=== PATIENT | male | born 1960 | race African-American/Black ===

== ENCOUNTER → 2017-02-09 | Outpatient (CLI) | payer MEDICARE, MEDICAID, OTHER ==
[2017-02-09 14:32] LABS: HEMATOCRIT 46.1 % (37.9-51.0); HEMOGLOBIN 14.7 g/dL (13.5-17.0); MEAN CORPUSCULAR HEMOGLOBIN 30.7 pg (27.0-33.4); MEAN CORPUSCULAR HGB CONC 31.9 g/dL (32.0-36.0); MEAN CORPUSCULAR VOLUME 96 fl (80-97); RED CELL DISTRIBUTION WIDTH 15.1 % (11.5-14.0); WHITE BLOOD COUNT 5.1 10^3/uL (4.0-10.5)
[2017-02-09 14:35] LABS: ALANINE AMINOTRANSFERASE 28 U/L (21-72); ALBUMIN 3.3 g/dL (3.5-5.0); ALKALINE PHOSPHATASE 110 U/L (38-126); ASPARTATE AMINO TRANSFERASE 33 U/L (17-59); BILIRUBIN,DIRECT 0.3 mg/dL (0.0-0.4); BILIRUBIN,TOTAL 0.4 mg/dL (0.2-1.3); TOTAL PROTEIN 6.4 g/dL (6.3-8.2)
[2017-02-09 14:51] LABS: BAND NEUTROPHILS % (MANUAL) 2 % (3-5); BASOPHILS % (MANUAL) 0 % (0-2); EOSINOPHILS % (MANUAL) 5 % (0-6); LYMPHOCYTES % (MANUAL) 34 % (13-45); NUCLEATED RED BLOOD CELLS 1 /100 WBC (0); TOTAL CELLS COUNTED 100
[2017-02-09 14:53] LABS: ANISOCYTOSIS SLIGHT; PLATELET CLUMPS PRESENT
== END ==
LOC: PNR 11:56
PROVIDERS: ATTEND Internal Medicine
DX: E78.00 Pure hypercholesterolemia, unspecified (principal); I38 Endocarditis, valve unspecified; K21.0 Gastro-esophageal reflux disease with esophagitis; G40.909 Epilepsy, unspecified, not intractable, without status epilepticus; I42.1 Obstructive hypertrophic cardiomyopathy; I48.1 Persistent atrial fibrillation; G93.41 Metabolic encephalopathy
CPT/HCPCS: 80076; 85025

== ENCOUNTER 2017-04-10 17:03 | Inpatient (IN) | payer MEDICARE, MEDICAID ==
--- NOTE | 2017-04-10 18:35 | RADIOLOGY REPORT (SQ) ---
EXAM DESCRIPTION: CHEST SINGLE VIEW COMPLETED DATE/TIME: 04/10/2017 6:27 pm REASON FOR STUDY: hypotension COMPARISON: 05/24/2015 EXAM PARAMETERS: NUMBER OF VIEWS: One view. TECHNIQUE: Single frontal radiographic view of the chest acquired. RADIATION DOSE: NA LIMITATIONS: None. FINDINGS: LUNGS AND PLEURA: No opacities, masses or pneumothorax. No pleural effusion. MEDIASTINUM AND HILAR STRUCTURES: No masses. Contour normal. HEART AND VASCULAR STRUCTURES: Heart normal in size. Normal vasculature. BONES: Scoliosis. HARDWARE: None in the chest. OTHER: No other significant finding. IMPRESSION: NO ACUTE RADIOGRAPHIC FINDING IN THE CHEST. TECHNICAL DOCUMENTATION: JOB ID: [id number]
[2017-04-10 18:44] LABS: HEMATOCRIT 42.9 % (37.9-51.0); HGB HCT DIFFERENCE -0.9; MEAN CORPUSCULAR HEMOGLOBIN 31.8 pg (27.0-33.4); MEAN CORPUSCULAR HGB CONC 32.7 g/dL (32.0-36.0); MEAN CORPUSCULAR VOLUME 97 fl (80-97); RED BLOOD COUNT 4.41 10^6/uL (4.35-5.55); RED CELL DISTRIBUTION WIDTH 14.4 % (11.5-14.0); WHITE BLOOD COUNT 16.1 10^3/uL (4.0-10.5)
--- NOTE | 2017-04-10 18:47 | ER Document Report ---
ED General - General Mode of Arrival: Ambulatory Information source: Relative Cannot obtain history due to: Mentally challenged TRAVEL OUTSIDE OF THE [place] IN LAST 30 DAYS: No <BHARAT KAMARA - Last Filed: 04/10/17 21:06> <BRITT MARK - Last Filed: 04/10/17 22:22> - General Chief Complaint: Other Stated Complaint: ALTERED MENTAL STATUS Time Seen by Provider: 04/10/17 17:38 Notes: Patient is a 56-year-old male that presents to the emergency department today with complaints of "being not responsive" according to family members at bedside. Family member states they received a call from the patient's shelter saying that he was found on the floor. 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 History is limited. (BHARAT KAMARA) - Related Data Allergies/Adverse Reactions: clindamycin [Clindamycin] Allergy (Unknown, Verified 04/10/17 17:54) Past Medical History - General Information source: [facility] Records Cannot obtain history due to: Mentally challenged - Social History Smoking Status: Never Smoker Cigarette use (# per day): No Frequency of alcohol use: None Drug Abuse: None Lives with: Correction Family History: Reviewed & Not Pertinent, DM - Past Medical History Cardiac Medical History: Reports: Hx Hypercholesterolemia, Hx Hypertension - Hypertrophic obstructive cardiomyopathy, Hx Heart Murmur Pulmonary Medical History: Reports: Hx Pneumonia Neurological Medical History: Reports: Hx Seizures Endocrine Medical History: Reports: Hx Diabetes Mellitus Type 1, Hx Diabetes Mellitus Type 2 Surgical Hx: Negative - Immunizations Immunizations up to date: Yes Hx Diphtheria, Pertussis, Tetanus Vaccination: Yes Hx Pneumococcal Vaccination: 07/30/12 <BHARAT KAMARA - Last Filed: 04/10/17 21:06> Review of Systems - Review of Systems -: Yes ROS unobtainable due to patient's medical condition <BHARAT KAMARA - Last Filed: 04/10/17 21:06> Physical Exam - Vital signs Interpretation: Hypotensive - General General appearance: Lethargic In distress: None - HEENT Mucous membranes: Dry - Respiratory Respiratory status: No respiratory distress Chest status: Nontender Breath sounds: Normal - Cardiovascular Rhythm: Regular - Abdominal Inspection: Normal Tenderness: Nontender - Back Back: Normal - Extremities General upper extremity: Other - at baseline General lower extremity: Other - at baseline - Neurological Cognition: Other - less responsive than usual - Skin Skin Temperature: Warm Skin Moisture: Dry <BRITT MARK - Last Filed: 04/10/17 22:22> - Vital signs Vitals: Temp Pulse Resp BP Pulse Ox 99.6 F 82 17 98/61 L 95 04/10/17 17:10 04/10/17 17:10 04/10/17 17:10 04/10/17 17:10 04/10/17 17:10 Course - Laboratory Result Diagrams: 04/10/17 18:20 04/10/17 18:20 <BHARAT KAMARA - Last Filed: 04/10/17 21:06> - Laboratory Result Diagrams: 04/10/17 18:20 04/10/17 18:20 - Diagnostic Test Radiology reviewed: Reports reviewed <BRITT MARK - Last Filed: 04/10/17 22:22> - Re-evaluation Re-evalutation: 04/10/17 Patient is a 56-year-old male who is brought in for being more tired than usual. Patient has a history of MRCP and is not very communicative at baseline. Patient has been less interactive today. Patient does not seem to indicate that he is in pain. Patient apparently had a large bowel movement today that was loose. Blood work is consistent with infection, as is the patient's elevation in temperature and hypotension. Patient has UTI. Cefepime started. Blood and urine culture sent. Discussed with Dr. Terrell who will admit the patient to the IMCU. Of note, patient is DNR/DNI. (BRITT MARK) - Vital Signs Vital signs: Temp Pulse Resp BP Pulse Ox 99.6 F 108 H 16 113/70 92 04/10/17 17:10 04/10/17 21:35 04/10/17 21:35 04/10/17 21:35 04/10/17 21:35 - Laboratory Laboratory results interpreted by me: 04/10/17 04/10/17 04/10/17 18:18 18:20 18:20 WBC 16.1 H RDW 14.4 H Seg Neuts % (Manual) 81 H Band Neutrophils % 10 H Lymphocytes % (Manual) 7 L Monocytes % (Manual) 1 L Abs Neuts (Manual) 14.7 H BUN 27 H Creatinine 1.42 H Est GFR (Non-Af Amer) 52 L Glucose 238 H POC Glucose 210 H Alkaline Phosphatase 129 H Urine Protein Urine Ketones Ur Leukocyte Esterase 04/10/17 20:30 WBC RDW Seg Neuts % (Manual) Band Neutrophils % Lymphocytes % (Manual) Monocytes % (Manual) Abs Neuts (Manual) BUN Creatinine Est GFR (Non-Af Amer) Glucose POC Glucose Alkaline Phosphatase Urine Protein 30 H Urine Ketones 20 H Ur Leukocyte Esterase MODERATE H Discharge <BHARAT KAMARA - Last Filed: 04/10/17 21:06> - Discharge Admitting Provider: [facility] Unit Admitted: IMCU <BRITT MARK - Last Filed: 04/10/17 22:22> - Discharge Clinical Impression: Septicemia UTI (urinary tract infection) Qualifiers: Urinary tract infection type: site unspecified Hematuria presence: without hematuria Qualified Code(s): N39.0 - Urinary tract infection, site not specified Condition: Stable Disposition: ADMITTED INPATIENT Scribe Attestation: 04/10/17 22:22 I personally performed the services described in the documentation, reviewed and edited the documentation which was dictated to the scribe in my presence, and it accurately records my words and actions. (BRITT MARK) Scribe Documentation - Scribe Written by Scribe:: Maris Castaneda, 04/10/2017 2110 acting as scribe for :: Lulu <BHARAT KAMARA - Last Filed: 04/10/17 21:06>
[2017-04-10 18:50] LABS: PROTHROMBIN TIME 13.6 SEC (11.4-15.4)
[2017-04-10 19:03] LABS: ALANINE AMINOTRANSFERASE 40 U/L (21-72); ALBUMIN 3.7 g/dL (3.5-5.0); ALKALINE PHOSPHATASE 129 U/L (38-126); ANION GAP 10 (5-19); ASPARTATE AMINO TRANSFERASE 38 U/L (17-59); BILIRUBIN,DIRECT 0.4 mg/dL (0.0-0.4); BILIRUBIN,TOTAL 0.5 mg/dL (0.2-1.3); BLOOD UREA NITROGEN 27 mg/dL (7-20); CARBON DIOXIDE 26 mmol/L (22-30); CHLORIDE 106 mmol/L (98-107); CREATININE RESULT 1.42 mg/dL (0.52-1.25); GLUCOSE 238 mg/dL (75-110); POTASSIUM 4.8 mmol/L (3.6-5.0); SODIUM 141.9 mmol/L (137-145); TOTAL PROTEIN 6.6 g/dL (6.3-8.2)
[2017-04-10 19:09] LABS: BAND NEUTROPHILS % (MANUAL) 10 % (3-5); BASOPHILS % (MANUAL) 0 % (0-2); EOSINOPHILS % (MANUAL) 0 % (0-6); LYMPHOCYTES % (MANUAL) 7 % (13-45); TOTAL CELLS COUNTED 100
[2017-04-10 19:11] LABS: RBC MORPHOLOGY COMMENT NORMO-CYTIC/CHROMIC
[2017-04-10 19:16] LABS: VENOUS BLOOD BASE EXCESS 0.4 mmol/L; VENOUS BLOOD HCO3 26.7 mmol/L (20-32); VENOUS BLOOD PCO2 49.6 mmHg (35-63); VENOUS BLOOD PH 7.35 (7.30-7.42)
[2017-04-10] MEDS ORDERED: NORMAL SALINE 1000 ML 1,000 ML IV ONE (19:36)
--- NOTE | 2017-04-10 20:03 | EKG REPORT ---
SEVERITY:- ABNORMAL ECG - SINUS RHYTHM PROBABLE LVH WITH SECONDARY REPOL ABNRM BORDERLINE PROLONGED QT INTERVAL : Confirmed by: Yolanda Lee 10-Apr-2017 20:02:54
[2017-04-10] MEDS ORDERED: CEFEPIME 1 GM/D5W RTU 1 GM/50 ML RTUPB IV ONE (20:43)
[2017-04-10 21:02] LABS: APPEARANCE,URINE SLIGHTLY-CLOUDY; BILIRUBIN,URINE NEGATIVE (NEGATIVE); GLUCOSE, URINE NEGATIVE (NEGATIVE); KETONES,URINE 20 mg/dL (NEGATIVE); LEUKOCYTE ESTERASE,URINE MODERATE (NEGATIVE); NITRITE,URINE NEGATIVE (NEGATIVE); PROTEIN,URINE 30 mg/dL (NEGATIVE); URINE SPECIFIC GRAVITY 1.016; UROBILINOGEN,URINE NEGATIVE mg/dL (<2.0)
[2017-04-11] MEDS ORDERED: ACETAMINOPHEN 325 MG TABLET PO PRN (07:39)
[2017-04-11] MEDS ORDERED: (PENDING PHARMACY ID) (Ondansetron Hcl [Zofran] 4 MG) PO PRN (07:39)
[2017-04-11] MEDS ORDERED: GLUCAGON HCL 1 MG IM PRN (07:39)
[2017-04-11] MEDS ORDERED: (PENDING PHARMACY ID) (Omeprazole [Prilosec] 20 MG) PO SCH (07:45)
[2017-04-11] MEDS ORDERED: LEVETIRACETAM 2000 MG PO SCH (07:45)
[2017-04-11] MEDS ORDERED: GLUCAGON,HUMAN RECOMB 1 MG INJ SUBCUT PRN (07:48)
[2017-04-11] MEDS ORDERED: ONDANSETRON 4 MG TAB.RAPDIS PO PRN (07:51)
[2017-04-11] MEDS ORDERED: CARBAMAZEPINE 200 MG TAB.SR.12H PO SCH (08:00)
[2017-04-11 08:34] LABS: PROTHROMBIN TIME 13.5 SEC (11.4-15.4)
[2017-04-11 08:35] LABS: PARTIAL THROMBOPLASTIN TIME 28.8 SEC (23.5-35.8)
[2017-04-11 08:46] LABS: LIPASE 76.2 U/L (23-300); MAGNESIUM 1.9 mg/dL (1.6-2.3); PHOSPHORUS 3.1 mg/dL (2.5-4.5)
[2017-04-11] MEDS ORDERED: DEXTROSE 50%-WATER SYRINGE 12.5 GM/25 ML DOSE IV PRN (08:52)
[2017-04-11] MEDS ORDERED: GLUCAGON,HUMAN RECOMB 1 MG INJ IM PRN (08:52)
[2017-04-11] MEDS ORDERED: DEXTROSE 40% GEL 15 GM TUBE X 2 PO PRN (08:52)
[2017-04-11] MEDS ORDERED: DEXTROSE 40% GEL 15 GM TUBE PO PRN (08:52)
[2017-04-11] MEDS ORDERED: DEXTROSE 50%-WATER SYRINGE 25 GM/50 ML DOSE IV PRN (08:52)
[2017-04-11 08:56] LABS: URINE BARBITURATES SCREEN NEGATIVE; URINE METHADONE SCREEN NEGATIVE; URINE OPIATES LOW NEGATIVE; URINE PHENCYCLIDINE SCREEN NEGATIVE
[2017-04-11 08:58] LABS: CREATINE KINASE MB 10.1 ng/mL (<4.55)
[2017-04-11] MEDS ORDERED: ATORVASTATIN CALCIUM 80 MG TABLET PO ONE (09:00)
[2017-04-11 09:09] LABS: TROPONIN I 0.131 ng/mL
[2017-04-11 09:16] LABS: THYROID STIMULATING HORMONE 0.63 uIU/mL (0.47-4.68)
[2017-04-11] MEDS: NORMAL SALINE 1000 ML 1,000 ML IV PRN (09:55)
[2017-04-11] MEDS: ENOXAPARIN SODIUM INJ 40 MG/0.4 ML DISP.SYRIN SUBCUT SCH (10:53)
[2017-04-11] MEDS: INSULIN DETEMIR 100 UNIT/ML 3 ML PEN SUBCUT SCH ×2 (10:53→18:49)
[2017-04-11] MEDS: ASPIRIN 81 MG TABLET, CHEWABLE PO SCH (10:54)
[2017-04-11] MEDS: CEFTRIAXONE 1 GM/D5W RTU 1 GM/50 ML RTUPB IV SCH (10:54)
[2017-04-11] MEDS: LANSOPRAZOLE 15 MG TAB.RAP.DR PO SCH (10:55)
[2017-04-11] MEDS: LEVETIRACETAM 500 MG TABLET PO SCH ×2 (10:55→23:01)
[2017-04-11] MEDS: LOSARTAN POTASSIUM 50 MG TABLET PO SCH (10:56)
[2017-04-11] MEDS: METOPROLOL TARTRATE 50 MG TABLET PO SCH ×2 (10:56→23:02)
[2017-04-11] MEDS: INSULIN LISPRO 100 UNIT/ML 3 ML VIAL SUBCUT PRN (11:34)
[2017-04-11 13:48] LABS: CREATINE KINASE MB 8.3 ng/mL (<4.55); TROPONIN I 0.114 ng/mL
--- NOTE | 2017-04-11 14:11 | Physician Advisory Note ---
Physician Advisor ProgressNote .: [facility] I have reviewed the medical record for this patient. Physician Advisor Statement: Please consider documentin. "Acute Renal Failure, likely due to " [ATN? hypotension? volume depletion? sepsis? ...] (or "Acute Kidney Injury", if you prefer) - baseline Cr 1.0s, up to 1.42 on arrival. 2. Likely cause of elevated trop-I: ARF? ACS? sepsis? 3. ? - "Possible sepsis, present on admission, due to UTI, evidenced by leukocytosis, fever, tachycardia, hypotension, altered mental status with lethargy, ARF, ..." - IF you believe this may have been present. If clinically you doubt it, then state that: "possible sepsis, felt to be unlikely/ruled out ", for example. Pertinent data: Sepsis-2 criteria: Pt w/WBC 16.1, HR 108, initial BP 98/61 (usually hypertensive), w/RR16-22. Sepsis-3 criteria: Would benefit from attending clarifying points below as to whether caused by other issues or possibly due to sepsis: Pt w/ARF, which could potentially be due to sepsis/hypotension. GCS not calculated by ED nurse, but spont eye opening, pt not able to give any hx or ROS at all, & no indication pt obeyed commands makes it possible that his GCS total would have been 13 or lower. Thanks! CK
[2017-04-11] MEDS: CARBAMAZEPINE 200 MG TAB.SR.12H PO SCH ×2 (14:49→23:01)
--- NOTE | 2017-04-11 17:27 | PDOC H&P ---
History of Present Illness Admission Date/PCP: 04/11/17 07:35 History of Present Illness: DEVI CARVAJAL is a 56 year old male, He has a history of cardiomyopathy, subaortic valvular stenosis ,Down syndrome with mental retardation he was transferred from the intermediate to the emergency room for evaluation of altered mental status. History taking is a challenge from this patient, he has a history of type 1 diabetes mellitus, in the emergency room was evaluated he was found to have abnormal urinalysis, the urine dipstick showed positive leukocyte esterase pyuria on microscopy ,positive nitrite this suggest urinary tract infection. He has a history of mitral valve endocarditis he was treated for a period of 6 weeks at a time, he is a resident of the intermediate at [facility] Past Medical History Cardiac Medical History: Reports: Hyperlipidema, Hypertension - Hypertrophic obstructive cardiomyopathy, Heart Murmur, Other - Subaortic valvular stenosis Pulmonary Medical History: Reports: Pneumonia Neurological Medical History: Reports: Seizures, Other - Down syndrome Endocrine Medical History: Reports: Diabetes Mellitus Type 1 GI Medical History: Reports: Gastroesophageal Reflux Disease Social History Lives with: Longterm Smoking Status: Never Smoker Frequency of Alcohol Use: None Hx Recreational Drug Use: No Hx Prescription Drug Abuse: No - Advance Directive Resuscitation Status: Do Not Resuscitate Family History Family History: Reviewed & Not Pertinent, DM Parental Family History Reviewed: Yes Children Family History Reviewed: Yes Sibling(s) Family History Reviewed.: Yes Medication/Allergy Home Medications: Insulin Aspart [Novolog Flexpen] See Protocol SUBCUT ACHS PRN 01/14/13 Atorvastatin Calcium [Lipitor] 80 mg PO QHS 04/16/13 Metoprolol Tartrate [Lopressor 50 mg Tablet] 50 mg PO Q12H 04/16/13 Aspirin [Aspirin 81 mg Chewable Tablet] 81 mg PO DAILY 04/23/14 Levetiracetam [Keppra] 2,000 mg PO Q12 04/23/14 Omeprazole [Prilosec] 20 mg PO DAILY 04/23/14 Carbamazepine [Tegretol Xr 200 mg Tab.sr] 200 mg PO TID 05/15/14 Losartan Potassium [Cozaar 50 mg Tablet] 50 mg PO DAILY #30 tablet 02/24/15 Acetaminophen [Pain & Fever] 650 mg PO Q6 PRN 05/25/15 Glucagon HCl 1 mg IM ASDIR PRN 04/11/17 Insulin Detemir [Levemir Insulin 100 units/mL] 25 unit SUBCUT BID 04/11/17 Ondansetron HCl [Zofran] 4 mg PO Q8HP PRN 04/11/17 Allergies/Adverse Reactions: clindamycin [Clindamycin] Allergy (Unknown, Verified 04/10/17 17:54) Review of Systems ROS unobtainable: Due to mental status Physical Exam Vital Signs: Temp Pulse Resp BP Pulse Ox 98.5 F 79 20 130/77 H 94 04/11/17 07:35 04/11/17 14:00 04/11/17 07:35 04/11/17 07:35 04/11/17 07:35 Intake & Output 04/10/17 04/11/17 04/12/17 06:59 06:59 06:59 Intake Total 240 Balance 240 General appearance: PRESENT: mild distress Neck exam: PRESENT: other - Supple Respiratory exam: PRESENT: clear to auscultation aren Cardiovascular exam: PRESENT: +S1, +S2 GI/Abdominal exam: PRESENT: soft Neurological exam: PRESENT: altered Results Laboratory Results: 04/11/17 04/11/17 04/11/17 08:13 08:13 08:13 Phosphorus 3.1 Magnesium 1.9 Ammonia < 8.7 L Amylase 32 Lipase 76.2 TSH 0.63 Free T4 0.81 04/11/17 04/11/17 04/11/17 08:13 08:13 13:09 Creatine Kinase 235 H 213 H CK-MB (CK-2) 10.10 H Troponin I 0.131 04/11/17 13:09 Creatine Kinase CK-MB (CK-2) 8.30 H Troponin I 0.114 Impressions: Chest X-Ray 04/10/17 17:55 IMPRESSION: NO ACUTE RADIOGRAPHIC FINDING IN THE CHEST. Assessment & Plan - Diagnosis (1) Sepsis Qualifiers: Sepsis type: sepsis due to unspecified organism Qualified Code(s): A41.9 - Sepsis, unspecified organism Is this a current diagnosis for this admission?: Yes Plan: Patient with sepsis due to urinary tract infection, there is associated acute kidney injury hypotension, elevated troponin all these conditions seems to be sepsis related (2) Hypotension Is this a current diagnosis for this admission?: Yes (3) Acute kidney injury Is this a current diagnosis for this admission?: Yes (4) Elevated troponin Is this a current diagnosis for this admission?: Yes (5) Urinary tract infection Qualifiers: Urinary tract infection type: site unspecified Hematuria presence: without hematuria Qualified Code(s): N39.0 - Urinary tract infection, site not specified Is this a current diagnosis for this admission?: Yes Plan: He will empirically be started on IV antibiotic Rocephin
[2017-04-11 20:36] LABS: CREATINE KINASE MB 7.81 ng/mL (<4.55); TROPONIN I 0.108 ng/mL
--- NOTE | 2017-04-11 22:49 | EKG REPORT ---
SEVERITY:- ABNORMAL ECG - SINUS RHYTHM SHORT WA INTERVAL, ACCELERATED AV CONDUCTION LVH WITH SECONDARY REPOLARIZATION ABNORMALITY : Confirmed by: Yolanda Lee 11-Apr-2017 22:48:45
[2017-04-11] MEDS: NYSTATIN 500000 UNIT/5 ML UDCUP PO SCH (23:00)
[2017-04-11] MEDS: ATORVASTATIN CALCIUM 80 MG TABLET PO SCH (23:01)
[2017-04-12] MEDS: CARBAMAZEPINE 200 MG TAB.SR.12H PO SCH ×3 (05:49→23:52)
[2017-04-12] MEDS: NORMAL SALINE 1000 ML 1,000 ML IV PRN (09:28)
[2017-04-12] MEDS: LEVETIRACETAM 500 MG TABLET PO SCH ×2 (09:29→23:51)
[2017-04-12] MEDS: LANSOPRAZOLE 15 MG TAB.RAP.DR PO SCH (09:29)
[2017-04-12] MEDS: CEFTRIAXONE 1 GM/D5W RTU 1 GM/50 ML RTUPB IV SCH (09:29)
[2017-04-12] MEDS: LOSARTAN POTASSIUM 50 MG TABLET PO SCH (09:29)
[2017-04-12] MEDS: METOPROLOL TARTRATE 50 MG TABLET PO SCH ×2 (09:30→22:21)
[2017-04-12] MEDS: ASPIRIN 81 MG TABLET, CHEWABLE PO SCH (09:30)
[2017-04-12] MEDS: NYSTATIN 500000 UNIT/5 ML UDCUP PO SCH ×2 (09:31→23:52)
[2017-04-12] MEDS: INSULIN DETEMIR 100 UNIT/ML 3 ML PEN SUBCUT SCH ×2 (09:46→17:57)
[2017-04-12] MEDS: ENOXAPARIN SODIUM INJ 40 MG/0.4 ML DISP.SYRIN SUBCUT SCH (10:06)
[2017-04-12 10:15] LABS: ABSOLUTE BASOPHILS # (AUTO) 0.1 10^3/uL (0.0-0.2); ABSOLUTE EOSINOPHILS # (AUTO) 0.1 10^3/uL (0.0-0.6); ABSOLUTE LYMPHOCYTES (AUTO) 1.5 10^3/uL (0.5-4.7); ABSOLUTE MONOCYTES (AUTO) 1.3 10^3/uL (0.1-1.4); ABSOLUTE NEUT (AUTO) 4.8 10^3/uL (1.7-8.2); BASOPHILS % (AUTO) 0.7 % (0-2); EOSINOPHILS % (AUTO) 1.2 % (0-6); HEMATOCRIT 40.6 % (37.9-51.0); HEMOGLOBIN 13.5 g/dL (13.5-17.0); HGB HCT DIFFERENCE -0.1; LYMPHOCYTES % (AUTO) 19.2 % (13-45); MEAN CORPUSCULAR HEMOGLOBIN 31.5 pg (27.0-33.4); MEAN CORPUSCULAR HGB CONC 33.1 g/dL (32.0-36.0); MEAN CORPUSCULAR VOLUME 95 fl (80-97); MONOCYTES % (AUTO) 16.9 % (3-13); RED BLOOD COUNT 4.28 10^6/uL (4.35-5.55); RED CELL DISTRIBUTION WIDTH 14.9 % (11.5-14.0); WHITE BLOOD COUNT 7.8 10^3/uL (4.0-10.5)
[2017-04-12 10:39] LABS: ALANINE AMINOTRANSFERASE 40 U/L (21-72); ALBUMIN 3.5 g/dL (3.5-5.0); ALKALINE PHOSPHATASE 98 U/L (38-126); ANION GAP 10 (5-19); ASPARTATE AMINO TRANSFERASE 48 U/L (17-59); BILIRUBIN,DIRECT 0.3 mg/dL (0.0-0.4); BILIRUBIN,TOTAL 0.3 mg/dL (0.2-1.3); BLOOD UREA NITROGEN 14 mg/dL (7-20); CALCIUM 9.2 mg/dL (8.4-10.2); CARBON DIOXIDE 27 mmol/L (22-30); CHLORIDE 106 mmol/L (98-107); CREATININE RESULT 1.01 mg/dL (0.52-1.25); GLUCOSE 159 mg/dL (75-110); POTASSIUM 4.3 mmol/L (3.6-5.0); SODIUM 143.2 mmol/L (137-145); TOTAL PROTEIN 6.6 g/dL (6.3-8.2)
--- NOTE | 2017-04-12 20:19 | PDOC PROGRESS REPORT ---
Subjective Progress Note for:: 04/12/17 Subjective:: The urine culture grew Proteus mirabilis sensitive to ceftriaxone which patient is presently taking, there is evidence of response to treatment the white blood cell decreased from 16,000 to 7000 Physical Exam Vital Signs: Temp Pulse Resp BP Pulse Ox 98.1 F 63 16 115/75 92 04/12/17 20:00 04/12/17 20:00 04/12/17 20:00 04/12/17 20:00 04/12/17 20:00 Intake & Output 04/11/17 04/12/17 04/13/17 06:59 06:59 06:59 Intake Total 1660 1048 Balance 1660 1048 Weight 61.8 kg General appearance: PRESENT: no acute distress Eye exam: PRESENT: PERRLA Respiratory exam: PRESENT: clear to auscultation aren Cardiovascular exam: PRESENT: +S1, +S2 GI/Abdominal exam: PRESENT: soft Neurological exam: PRESENT: alert Results Laboratory Results: 04/12/17 09:59 04/12/17 09:59 04/12/17 04/12/17 09:59 09:59 WBC 7.8 RBC 4.28 L Hgb 13.5 Hct 40.6 MCV 95 MCH 31.5 MCHC 33.1 RDW 14.9 H Plt Count 157 Seg Neutrophils % 62.0 Lymphocytes % 19.2 Monocytes % 16.9 H Eosinophils % 1.2 Basophils % 0.7 Absolute Neutrophils 4.8 Absolute Lymphocytes 1.5 Absolute Monocytes 1.3 Absolute Eosinophils 0.1 Absolute Basophils 0.1 Sodium 143.2 Potassium 4.3 Chloride 106 Carbon Dioxide 27 Anion Gap 10 BUN 14 Creatinine 1.01 Est GFR ( Amer) > 60 Est GFR (Non-Af Amer) > 60 Glucose 159 H Calcium 9.2 Total Bilirubin 0.3 AST 48 ALT 40 Alkaline Phosphatase 98 Total Protein 6.6 Albumin 3.5 04/11/17 04/11/17 04/11/17 08:13 08:13 13:09 Creatine Kinase 235 H 213 H CK-MB (CK-2) 10.10 H Troponin I 0.131 04/11/17 04/11/17 04/11/17 13:09 19:55 19:55 Creatine Kinase 193 H CK-MB (CK-2) 8.30 H 7.81 H Troponin I 0.114 0.108 Impressions: Chest X-Ray 04/10/17 17:55 IMPRESSION: NO ACUTE RADIOGRAPHIC FINDING IN THE CHEST. Assessment & Plan - Diagnosis (1) Sepsis Qualifiers: Sepsis type: sepsis due to unspecified organism Qualified Code(s): A41.9 - Sepsis, unspecified organism Is this a current diagnosis for this admission?: Yes (2) Hypotension Is this a current diagnosis for this admission?: Yes (3) Acute kidney injury Is this a current diagnosis for this admission?: Yes (4) Elevated troponin Is this a current diagnosis for this admission?: Yes (5) Urinary tract infection Qualifiers: Urinary tract infection type: site unspecified Hematuria presence: without hematuria Qualified Code(s): N39.0 - Urinary tract infection, site not specified Is this a current diagnosis for this admission?: Yes (6) Urinary tract infection due to Proteus Is this a current diagnosis for this admission?: Yes Plan: The antibiotic ceftriaxone to be continued
[2017-04-12] MEDS: ATORVASTATIN CALCIUM 80 MG TABLET PO SCH (23:51)
[2017-04-13 04:51] LABS: ABSOLUTE EOSINOPHILS # (AUTO) 0.1 10^3/uL (0.0-0.6); ABSOLUTE LYMPHOCYTES (AUTO) 1.3 10^3/uL (0.5-4.7); ABSOLUTE NEUT (AUTO) 2.8 10^3/uL (1.7-8.2); BASOPHILS % (AUTO) 0.3 % (0-2); EOSINOPHILS % (AUTO) 2.4 % (0-6); HEMATOCRIT 38.4 % (37.9-51.0); HGB HCT DIFFERENCE 0.6; LYMPHOCYTES % (AUTO) 24.7 % (13-45); MEAN CORPUSCULAR HEMOGLOBIN 31.9 pg (27.0-33.4); MEAN CORPUSCULAR VOLUME 94 fl (80-97); MONOCYTES % (AUTO) 18.5 % (3-13); RED BLOOD COUNT 4.09 10^6/uL (4.35-5.55); RED CELL DISTRIBUTION WIDTH 14.2 % (11.5-14.0); SEGMENTED NEUTROPHILS % (AUTO) 54.1 % (42-78); WHITE BLOOD COUNT 5.2 10^3/uL (4.0-10.5)
[2017-04-13 05:08] LABS: ANION GAP 8 (5-19); BLOOD UREA NITROGEN 12 mg/dL (7-20); CALCIUM 8.7 mg/dL (8.4-10.2); CARBON DIOXIDE 27 mmol/L (22-30); CHLORIDE 106 mmol/L (98-107); CREATININE RESULT 0.93 mg/dL (0.52-1.25); GLUCOSE 197 mg/dL (75-110); POTASSIUM 4.6 mmol/L (3.6-5.0); SODIUM 140.8 mmol/L (137-145)
[2017-04-13] MEDS: CARBAMAZEPINE 200 MG TAB.SR.12H PO SCH ×3 (06:13→23:02)
[2017-04-13] MEDS: NORMAL SALINE 1000 ML 1,000 ML IV PRN (06:18)
[2017-04-13] MEDS: INSULIN LISPRO 100 UNIT/ML 3 ML VIAL SUBCUT PRN ×3 (08:32→23:02)
[2017-04-13] MEDS: INSULIN DETEMIR 100 UNIT/ML 3 ML PEN SUBCUT SCH ×2 (09:43→17:32)
[2017-04-13] MEDS: ENOXAPARIN SODIUM INJ 40 MG/0.4 ML DISP.SYRIN SUBCUT SCH (09:43)
[2017-04-13] MEDS: LANSOPRAZOLE 15 MG TAB.RAP.DR PO SCH (09:44)
[2017-04-13] MEDS: METOPROLOL TARTRATE 50 MG TABLET PO SCH ×2 (09:44→23:10)
[2017-04-13] MEDS: NYSTATIN 500000 UNIT/5 ML UDCUP PO SCH ×2 (09:44→23:01)
[2017-04-13] MEDS: LOSARTAN POTASSIUM 50 MG TABLET PO SCH (09:47)
[2017-04-13] MEDS: CEFTRIAXONE 1 GM/D5W RTU 1 GM/50 ML RTUPB IV SCH (09:48)
[2017-04-13] MEDS: ASPIRIN 81 MG TABLET, CHEWABLE PO SCH (09:48)
[2017-04-13] MEDS: LEVETIRACETAM 500 MG TABLET PO SCH ×2 (09:51→23:02)
--- NOTE | 2017-04-13 20:26 | PDOC PROGRESS REPORT ---
Subjective Progress Note for:: 04/13/17 Subjective:: Patient with cerebral palsy admitted because of UTI sepsis due to Proteus mirabilis resistant to fluoroquinolones, Macrobid but sensitive to ceftriaxone will continue the antibiotic Physical Exam Vital Signs: Temp Pulse Resp BP Pulse Ox 97.6 F 54 L 17 139/120 H 99 04/13/17 19:59 04/13/17 19:59 04/13/17 19:59 04/13/17 19:59 04/13/17 15:44 Intake & Output 04/12/17 04/13/17 04/14/17 06:59 06:59 06:59 Intake Total 1660 1698 1392 Balance 1660 1698 1392 Weight 61.8 kg 69.2 kg General appearance: PRESENT: no acute distress Respiratory exam: PRESENT: clear to auscultation aren Cardiovascular exam: PRESENT: +S1, +S2 GI/Abdominal exam: PRESENT: soft Rectal exam: PRESENT: deferred Neurological exam: PRESENT: alert Results Laboratory Results: 04/13/17 04:06 04/13/17 04:06 04/13/17 04/13/17 04:06 04:06 WBC 5.2 RBC 4.09 L Hgb 13.0 L Hct 38.4 MCV 94 MCH 31.9 MCHC 34.0 RDW 14.2 H Plt Count 149 L Seg Neutrophils % 54.1 Lymphocytes % 24.7 Monocytes % 18.5 H Eosinophils % 2.4 Basophils % 0.3 Absolute Neutrophils 2.8 Absolute Lymphocytes 1.3 Absolute Monocytes 1.0 Absolute Eosinophils 0.1 Absolute Basophils 0.0 Sodium 140.8 Potassium 4.6 Chloride 106 Carbon Dioxide 27 Anion Gap 8 BUN 12 Creatinine 0.93 Est GFR ( Amer) > 60 Est GFR (Non-Af Amer) > 60 Glucose 197 H Calcium 8.7 04/11/17 04/11/17 04/11/17 08:13 08:13 13:09 Creatine Kinase 235 H 213 H CK-MB (CK-2) 10.10 H Troponin I 0.131 04/11/17 04/11/17 04/11/17 13:09 19:55 19:55 Creatine Kinase 193 H CK-MB (CK-2) 8.30 H 7.81 H Troponin I 0.114 0.108 Impressions: Chest X-Ray 04/10/17 17:55 IMPRESSION: NO ACUTE RADIOGRAPHIC FINDING IN THE CHEST. Assessment & Plan - Diagnosis (1) Sepsis Qualifiers: Sepsis type: sepsis due to unspecified organism Qualified Code(s): A41.9 - Sepsis, unspecified organism Is this a current diagnosis for this admission?: Yes (2) Hypotension Is this a current diagnosis for this admission?: Yes (3) Acute kidney injury Is this a current diagnosis for this admission?: Yes (4) Elevated troponin Is this a current diagnosis for this admission?: Yes (5) Urinary tract infection Qualifiers: Urinary tract infection type: site unspecified Hematuria presence: without hematuria Qualified Code(s): N39.0 - Urinary tract infection, site not specified Is this a current diagnosis for this admission?: Yes (6) Urinary tract infection due to Proteus Is this a current diagnosis for this admission?: Yes Plan: The intravenous ceftriaxone will be continued
[2017-04-13] MEDS: ATORVASTATIN CALCIUM 80 MG TABLET PO SCH (23:02)
[2017-04-14] MEDS: NORMAL SALINE 1000 ML 1,000 ML IV PRN ×2 (03:13→23:16)
[2017-04-14 05:13] LABS: ABSOLUTE EOSINOPHILS # (AUTO) 0.2 10^3/uL (0.0-0.6); ABSOLUTE LYMPHOCYTES (AUTO) 1.4 10^3/uL (0.5-4.7); ABSOLUTE MONOCYTES (AUTO) 0.9 10^3/uL (0.1-1.4); ABSOLUTE NEUT (AUTO) 3.2 10^3/uL (1.7-8.2); BASOPHILS % (AUTO) 0.7 % (0-2); EOSINOPHILS % (AUTO) 3.5 % (0-6); HEMATOCRIT 37.3 % (37.9-51.0); HEMOGLOBIN 12.7 g/dL (13.5-17.0); HGB HCT DIFFERENCE 0.8; LYMPHOCYTES % (AUTO) 24.4 % (13-45); MEAN CORPUSCULAR HEMOGLOBIN 32.1 pg (27.0-33.4); MEAN CORPUSCULAR HGB CONC 34.1 g/dL (32.0-36.0); MEAN CORPUSCULAR VOLUME 94 fl (80-97); MONOCYTES % (AUTO) 15.4 % (3-13); RED BLOOD COUNT 3.96 10^6/uL (4.35-5.55); RED CELL DISTRIBUTION WIDTH 13.9 % (11.5-14.0); WHITE BLOOD COUNT 5.7 10^3/uL (4.0-10.5)
[2017-04-14] MEDS: CARBAMAZEPINE 200 MG TAB.SR.12H PO SCH ×3 (05:28→22:20)
[2017-04-14 05:29] LABS: ANION GAP 9 (5-19); BLOOD UREA NITROGEN 14 mg/dL (7-20); CALCIUM 8.8 mg/dL (8.4-10.2); CARBON DIOXIDE 28 mmol/L (22-30); CHLORIDE 106 mmol/L (98-107); CREATININE RESULT 0.98 mg/dL (0.52-1.25); GLUCOSE 113 mg/dL (75-110); POTASSIUM 4.3 mmol/L (3.6-5.0); SODIUM 143.1 mmol/L (137-145)
--- NOTE | 2017-04-14 09:12 | PDOC PROGRESS REPORT ---
Subjective Progress Note for:: 04/14/17 Subjective:: Patient at baseline cerebral palsy. No observed difficulty with breathing. Tolerating oral feeding and cooperative with health. Physical Exam Vital Signs: Temp Pulse Resp BP Pulse Ox 97.8 F 62 19 132/91 H 90 L 04/14/17 07:41 04/14/17 07:41 04/14/17 07:41 04/14/17 07:41 04/14/17 07:41 Intake & Output 04/13/17 04/14/17 04/15/17 06:59 06:59 06:59 Intake Total 1698 2352 Balance 1698 2352 Weight 69.2 kg 69.2 kg General appearance: PRESENT: no acute distress Head exam: PRESENT: atraumatic, normocephalic Eye exam: PRESENT: conjunctiva pink. ABSENT: conjunctiva pale, scleral icterus Mouth exam: PRESENT: moist Respiratory exam: PRESENT: clear to auscultation aren Cardiovascular exam: PRESENT: RRR. ABSENT: diastolic murmur, rubs, systolic murmur Vascular exam: ABSENT: pallor GI/Abdominal exam: PRESENT: normal bowel sounds Neurological exam: PRESENT: altered - baseline cerebral palsy Skin exam: PRESENT: dry, intact, warm. ABSENT: cyanosis, rash Results Laboratory Results: 04/14/17 04:15 04/14/17 04:15 04/14/17 04/14/17 04:15 04:15 WBC 5.7 RBC 3.96 L Hgb 12.7 L Hct 37.3 L MCV 94 MCH 32.1 MCHC 34.1 RDW 13.9 Plt Count 153 Seg Neutrophils % 56.0 Lymphocytes % 24.4 Monocytes % 15.4 H Eosinophils % 3.5 Basophils % 0.7 Absolute Neutrophils 3.2 Absolute Lymphocytes 1.4 Absolute Monocytes 0.9 Absolute Eosinophils 0.2 Absolute Basophils 0.0 Sodium 143.1 Potassium 4.3 Chloride 106 Carbon Dioxide 28 Anion Gap 9 BUN 14 Creatinine 0.98 Est GFR ( Amer) > 60 Est GFR (Non-Af Amer) > 60 Glucose 113 H Calcium 8.8 04/11/17 04/11/17 04/11/17 08:13 08:13 13:09 Creatine Kinase 235 H 213 H CK-MB (CK-2) 10.10 H Troponin I 0.131 04/11/17 04/11/17 04/11/17 13:09 19:55 19:55 Creatine Kinase 193 H CK-MB (CK-2) 8.30 H 7.81 H Troponin I 0.114 0.108 Impressions: Chest X-Ray 04/10/17 17:55 IMPRESSION: NO ACUTE RADIOGRAPHIC FINDING IN THE CHEST. Assessment & Plan - Diagnosis (1) UTI (urinary tract infection) Qualifiers: Urinary tract infection type: site unspecified Hematuria presence: without hematuria Qualified Code(s): N39.0 - Urinary tract infection, site not specified Is this a current diagnosis for this admission?: Yes Plan: Continue current medication management. (2) Diabetes mellitus with blindness Is this a current diagnosis for this admission?: Yes Plan: See attending physician orders. (3) Hypertension Qualifiers: Hypertension type: essential hypertension Qualified Code(s): I10 - Essential (primary) hypertension Is this a current diagnosis for this admission?: Yes Plan: See attending physician orders. (4) Seizure Is this a current diagnosis for this admission?: Yes Plan: See attending physician orders. (5) Cerebral palsy Qualifiers: Cerebral palsy type: unspecified type Qualified Code(s): G80.9 - Cerebral palsy, unspecified Is this a current diagnosis for this admission?: Yes Plan: See attending physician orders. - Time Time Spent with patient: 25-34 minutes Medications reviewed and adjusted accordingly: Yes Anticipated discharge: SNF Within: Other - Inpatient Certification Based on my medical assessment, after consideration of the patient's comorbidities, presenting symptoms, or acuity I expect that the services needed warrant INPATIENT care.: Yes I certify that my determination is in accordance with my understanding of Medicare's requirements for reasonable and necessary INPATIENT services [42 CFR 412.3e].: Yes Medical Necessity: Need Close Monitoring Due to Risk of Patient Decompensation, Need For IV Fluids, Need for IV Antibiotics, Risk of Complication if Not Cared For in Hospital Post Hospital Care: D/C or Transfer Summary - Plan Summary Plan Summary: See attending physician orders.
[2017-04-14] MEDS: LOSARTAN POTASSIUM 50 MG TABLET PO SCH (10:13)
[2017-04-14] MEDS: INSULIN DETEMIR 100 UNIT/ML 3 ML PEN SUBCUT SCH ×2 (10:13→18:46)
[2017-04-14] MEDS: LEVETIRACETAM 500 MG TABLET PO SCH ×2 (10:13→22:20)
[2017-04-14] MEDS: NYSTATIN 500000 UNIT/5 ML UDCUP PO SCH ×2 (10:13→22:20)
[2017-04-14] MEDS: CEFTRIAXONE 1 GM/D5W RTU 1 GM/50 ML RTUPB IV SCH (10:13)
[2017-04-14] MEDS: ENOXAPARIN SODIUM INJ 40 MG/0.4 ML DISP.SYRIN SUBCUT SCH (10:13)
[2017-04-14] MEDS: LANSOPRAZOLE 15 MG TAB.RAP.DR PO SCH (10:14)
[2017-04-14] MEDS: ASPIRIN 81 MG TABLET, CHEWABLE PO SCH (10:14)
[2017-04-14] MEDS: METOPROLOL TARTRATE 50 MG TABLET PO SCH ×2 (10:14→22:20)
[2017-04-14] MEDS: ATORVASTATIN CALCIUM 80 MG TABLET PO SCH (22:20)
[2017-04-15] MEDS: CARBAMAZEPINE 200 MG TAB.SR.12H PO SCH ×3 (05:31→22:10)
[2017-04-15] MEDS: INSULIN DETEMIR 100 UNIT/ML 3 ML PEN SUBCUT SCH ×2 (10:43→17:32)
[2017-04-15] MEDS: CEFTRIAXONE 1 GM/D5W RTU 1 GM/50 ML RTUPB IV SCH (10:54)
[2017-04-15] MEDS: METOPROLOL TARTRATE 50 MG TABLET PO SCH ×2 (10:55→23:33)
[2017-04-15] MEDS: LOSARTAN POTASSIUM 50 MG TABLET PO SCH (10:57)
[2017-04-15] MEDS: LANSOPRAZOLE 15 MG TAB.RAP.DR PO SCH (10:57)
[2017-04-15] MEDS: ASPIRIN 81 MG TABLET, CHEWABLE PO SCH (10:57)
[2017-04-15] MEDS: NYSTATIN 500000 UNIT/5 ML UDCUP PO SCH ×2 (10:57→22:10)
[2017-04-15] MEDS: ENOXAPARIN SODIUM INJ 40 MG/0.4 ML DISP.SYRIN SUBCUT SCH (11:01)
[2017-04-15] MEDS: LEVETIRACETAM 500 MG TABLET PO SCH ×2 (11:01→22:10)
[2017-04-15] MEDS: INSULIN LISPRO 100 UNIT/ML 3 ML VIAL SUBCUT PRN (12:09)
--- NOTE | 2017-04-15 12:20 | PDOC PROGRESS REPORT ---
Subjective Progress Note for:: 04/15/17 Subjective:: Patient at baseline cerebral palsy. No observed difficulty with breathing. Tolerating oral feeding and cooperative with health. Physical Exam Vital Signs: Temp Pulse Resp BP Pulse Ox 98.1 F 76 17 156/78 H 98 04/15/17 11:21 04/15/17 11:21 04/15/17 11:21 04/15/17 11:21 04/15/17 11:21 Intake & Output 04/14/17 04/15/17 04/16/17 06:59 06:59 06:59 Intake Total 2352 1403 Balance 2352 1403 Weight 69.2 kg 63.7 kg Physical Exam: General appearance: PRESENT: no acute distress Head exam: PRESENT: atraumatic, normocephalic Eye exam: PRESENT: conjunctiva pink. ABSENT: conjunctiva pale, scleral icterus Mouth exam: PRESENT: moist Respiratory exam: PRESENT: clear to auscultation aren Cardiovascular exam: PRESENT: RRR. ABSENT: diastolic murmur, rubs, systolic murmur Vascular exam: ABSENT: pallor GI/Abdominal exam: PRESENT: normal bowel sounds Neurological exam: PRESENT: altered - baseline cerebral palsy Skin exam: PRESENT: dry, intact, warm. ABSENT: cyanosis, rash Results Laboratory Results: 04/14/17 04:15 04/14/17 04:15 04/11/17 04/11/17 04/11/17 08:13 08:13 13:09 Creatine Kinase 235 H 213 H CK-MB (CK-2) 10.10 H Troponin I 0.131 04/11/17 04/11/17 04/11/17 13:09 19:55 19:55 Creatine Kinase 193 H CK-MB (CK-2) 8.30 H 7.81 H Troponin I 0.114 0.108 Impressions: Chest X-Ray 04/10/17 17:55 IMPRESSION: NO ACUTE RADIOGRAPHIC FINDING IN THE CHEST. Assessment & Plan - Diagnosis (1) UTI (urinary tract infection) Qualifiers: Urinary tract infection type: site unspecified Hematuria presence: without hematuria Qualified Code(s): N39.0 - Urinary tract infection, site not specified Is this a current diagnosis for this admission?: Yes (2) Diabetes mellitus with blindness Is this a current diagnosis for this admission?: Yes (3) Hypertension Qualifiers: Hypertension type: essential hypertension Qualified Code(s): I10 - Essential (primary) hypertension Is this a current diagnosis for this admission?: Yes (4) Seizure Is this a current diagnosis for this admission?: Yes (5) Cerebral palsy Qualifiers: Cerebral palsy type: unspecified type Qualified Code(s): G80.9 - Cerebral palsy, unspecified Is this a current diagnosis for this admission?: Yes - Time Time Spent with patient: 25-34 minutes Medications reviewed and adjusted accordingly: Yes Anticipated discharge: SNF - Inpatient Certification Based on my medical assessment, after consideration of the patient's comorbidities, presenting symptoms, or acuity I expect that the services needed warrant INPATIENT care.: Yes I certify that my determination is in accordance with my understanding of Medicare's requirements for reasonable and necessary INPATIENT services [42 CFR 412.3e].: Yes Medical Necessity: Need Close Monitoring Due to Risk of Patient Decompensation, Need For Continuous Telemetry Monitoring, Need for IV Antibiotics, Risk of Complication if Not Cared For in Hospital Post Hospital Care: D/C or Transfer Summary - Plan Summary Plan Summary: See covering attending physician orders.
[2017-04-15] MEDS: NORMAL SALINE 1000 ML 1,000 ML IV PRN (22:06)
[2017-04-15] MEDS: ATORVASTATIN CALCIUM 80 MG TABLET PO SCH (22:11)
[2017-04-16] MEDS: CARBAMAZEPINE 200 MG TAB.SR.12H PO SCH (06:37)
[2017-04-16] MEDS: METOPROLOL TARTRATE 50 MG TABLET PO SCH ×2 (09:46→22:36)
[2017-04-16] MEDS: LANSOPRAZOLE 15 MG TAB.RAP.DR PO SCH (09:46)
[2017-04-16] MEDS: ASPIRIN 81 MG TABLET, CHEWABLE PO SCH (09:46)
[2017-04-16] MEDS: CEFTRIAXONE 1 GM/D5W RTU 1 GM/50 ML RTUPB IV SCH (09:46)
[2017-04-16] MEDS: LOSARTAN POTASSIUM 50 MG TABLET PO SCH (09:46)
[2017-04-16] MEDS: ENOXAPARIN SODIUM INJ 40 MG/0.4 ML DISP.SYRIN SUBCUT SCH (09:46)
[2017-04-16] MEDS: INSULIN DETEMIR 100 UNIT/ML 3 ML PEN SUBCUT SCH ×2 (09:46→17:38)
[2017-04-16] MEDS: NYSTATIN 500000 UNIT/5 ML UDCUP PO SCH ×2 (09:46→22:35)
[2017-04-16] MEDS: LEVETIRACETAM 500 MG TABLET PO SCH ×2 (09:46→22:35)
[2017-04-16] MEDS: INSULIN LISPRO 100 UNIT/ML 3 ML VIAL SUBCUT PRN (12:32)
[2017-04-16] MEDS ORDERED: CARBAMAZEPINE 200 MG TAB.SR.12H PO ONE (15:00)
[2017-04-16] MEDS: NORMAL SALINE 1000 ML 1,000 ML IV PRN (18:43)
--- NOTE | 2017-04-16 20:37 | PDOC TRANSFER SUMMARY ---
General - Admit/Disc Date/PCP Admission Date/Primary Care Provider: 04/11/17 07:35 Discharge Date: 04/16/17 - Discharge Diagnosis (1) Sepsis Is this a current diagnosis for this admission?: Yes (2) Hypotension Is this a current diagnosis for this admission?: Yes (3) Acute kidney injury Is this a current diagnosis for this admission?: Yes (4) Elevated troponin Is this a current diagnosis for this admission?: Yes (5) Urinary tract infection Is this a current diagnosis for this admission?: Yes (6) Urinary tract infection due to Proteus Is this a current diagnosis for this admission?: Yes - Additional Information Resuscitation Status: Do Not Resuscitate Home Medications: Insulin Aspart [Novolog Flexpen] See Protocol SUBCUT ACHS PRN 01/14/13 Atorvastatin Calcium [Lipitor] 80 mg PO QHS 04/16/13 Metoprolol Tartrate [Lopressor 50 mg Tablet] 50 mg PO Q12H 04/16/13 Aspirin [Aspirin 81 mg Chewable Tablet] 81 mg PO DAILY 04/23/14 Levetiracetam [Keppra] 2,000 mg PO Q12 04/23/14 Omeprazole [Prilosec] 20 mg PO DAILY 04/23/14 Carbamazepine [Tegretol Xr 200 mg Tab.sr] 200 mg PO TID 05/15/14 Losartan Potassium [Cozaar 50 mg Tablet] 50 mg PO DAILY #30 tablet 02/24/15 Acetaminophen [Pain & Fever] 650 mg PO Q6 PRN 05/25/15 Glucagon HCl 1 mg IM ASDIR PRN 04/11/17 Insulin Detemir [Levemir Insulin 100 units/mL] 25 unit SUBCUT BID 04/11/17 Ondansetron HCl [Zofran] 4 mg PO Q8HP PRN 04/11/17 History of Present Illness Admission Date/PCP: 04/11/17 07:35 History of Present Illness: DEVI CARVAJAL is a 56 year old male, He has a history of cardiomyopathy, subaortic valvular stenosis ,Down syndrome with mental retardation he was transferred from the alf to the emergency room for evaluation of altered mental status. History taking is a challenge from this patient, he has a history of type 1 diabetes mellitus, in the emergency room was evaluated he was found to have abnormal urinalysis, the urine dipstick showed positive leukocyte esterase pyuria on microscopy ,positive nitrite this suggest urinary tract infection. He has a history of mitral valve endocarditis he was treated for a period of 6 weeks at a time, he is a resident of the alf at [facility] Hospital Course: Patient 56-year-old with mental retardation due to cerebral palsy, he was admitted because of sepsis due to Proteus UTI. History taking is a challenge for this patient, a resident of the alf at [place], he had sepsis syndrome on admission with low blood pressure leukocytosis altered mental status. He was empirically treated with IV antibiotic ceftriaxone, urine culture grew Proteus sensitive to ceftriaxone he was continue on the same medication through hospital stay. He also add elevated troponin which is thought to be secondary to sepsis. Physical Exam Vital Signs: Temp Pulse Resp BP Pulse Ox 97.7 F 73 16 133/80 H 99 04/16/17 16:11 04/16/17 16:11 04/16/17 16:11 04/16/17 16:11 04/16/17 16:11 Intake & Output 04/15/17 04/16/17 04/17/17 06:59 06:59 06:59 Intake Total 1403 1585 1255 Balance 1403 1585 1255 Weight 63.7 kg 65.8 kg General appearance: PRESENT: no acute distress Eye exam: PRESENT: PERRLA Respiratory exam: PRESENT: clear to auscultation aren Cardiovascular exam: PRESENT: +S1, +S2 GI/Abdominal exam: PRESENT: soft Results Laboratory Results: 04/14/17 04:15 04/14/17 04:15 04/11/17 04/11/17 04/11/17 08:13 08:13 13:09 Creatine Kinase 235 H 213 H CK-MB (CK-2) 10.10 H Troponin I 0.131 04/11/17 04/11/17 04/11/17 13:09 19:55 19:55 Creatine Kinase 193 H CK-MB (CK-2) 8.30 H 7.81 H Troponin I 0.114 0.108 Impressions: Chest X-Ray 04/10/17 17:55 IMPRESSION: NO ACUTE RADIOGRAPHIC FINDING IN THE CHEST.
[2017-04-16] MEDS ORDERED: CARBAMAZEPINE 200 MG TAB.SR.12H PO SCH (22:00)
[2017-04-16] MEDS: ATORVASTATIN CALCIUM 80 MG TABLET PO SCH (22:35)
[2017-04-16 23:28] VITALS: BP 154/87
== END 2017-04-16 23:23 | DRG 872 ==
LOC: ER 17:03 → UNDOADMIN 21:08 → EH 21:08 → 3N 04-11 04:49 → EH 04-11 04:49 → 3N 04-11 07:35
PROVIDERS: ADMIT Internal Medicine; ATTEND Internal Medicine
DX: A41.9 Sepsis, unspecified organism (principal); N17.9 Acute kidney failure, unspecified; I42.1 Obstructive hypertrophic cardiomyopathy; N39.0 Urinary tract infection, site not specified; B96.4 Proteus (mirabilis) (morganii) as the cause of diseases classified elsewhere; Z66 Do not resuscitate; E10.9 Type 1 diabetes mellitus without complications; E78.5 Hyperlipidemia, unspecified; I10 Essential (primary) hypertension; R56.9 Unspecified convulsions; K21.9 Gastro-esophageal reflux disease without esophagitis; F79 Unspecified intellectual disabilities; G80.9 Cerebral palsy, unspecified; Q90.9 Down syndrome, unspecified; Z79.899 Other long term (current) drug therapy; Z79.82 Long term (current) use of aspirin; Z79.4 Long term (current) use of insulin; Z79.84 Long term (current) use of oral hypoglycemic drugs; Z88.1 Allergy status to other antibiotic agents
CPT/HCPCS: 36415; 51701; 71010; 80048; 80053; 80307; 81001; 82140; 82150; 82550; 82553; 82803; 82962; 83605; 83690; 83735; 84100; 84439; 84443; 84484; 85025; 85610; 85730; 87040; 87086; 87088; 87186; 93005; 93010; 99285; J0692; J0696; J1650; J1815; J3490; J7030

== ENCOUNTER 2017-05-25 10:07 | Emergency (ER) | payer MEDICARE, MEDICAID ==
[2017-05-25] MEDS ORDERED: LORAZEPAM INJ 2 MG/1 ML VIAL IM ONE (10:09)
--- NOTE | 2017-05-25 10:13 | ER Document Report ---
ED Head/Face/Scalp Injury - General Stated Complaint: ALTERED MENTAL STATUS Time Seen by Provider: 05/25/17 10:09 Mode of Arrival: Stretcher Information source: Emergency Med Personnel TRAVEL OUTSIDE OF THE [place] IN LAST 30 DAYS: No - HPI Patient complains to provider of: Injury, Pain, Swelling Injury to: Head Location of problem: Head Occurred: This morning Where: Longterm Timing: Still present Context: Fell Notes: Patient is a 56-year-old male with a history of Down syndrome brought to the emergency room from custodial for headache with head injury that occurred sometime this morning, apparently the fall was unwitnessed but he does have a large hematoma to his left forehead, he is crying out and slapping himself in the head which apparently is typical of his presentation when he is in pain as he suffers from headaches from time to time, he is otherwise not able to articulate any other concerns at this point in time, information was obtained from the emergency medicine personnel brought him to the ED - Related Data Allergies/Adverse Reactions: clindamycin [Clindamycin] Allergy (Unknown, Verified 04/10/17 17:54) Home Medications: Current Home Medications Insulin Aspart [Novolog Flexpen] 0 unit SUBCUT .SLD SCALE 05/25/17 [History] Insulin Detemir [Levemir Flextouch] 0 unit SQ .CLARIFY 05/25/17 [History] Past Medical History - General Information source: Transfer Record, Emergency Med Personnel - Social History Smoking Status: Unknown if Ever Smoked Family History: Reviewed & Not Pertinent, DM - Past Medical History Cardiac Medical History: Reports: Hx Hypercholesterolemia, Hx Hypertension - Hypertrophic obstructive cardiomyopathy, Hx Heart Murmur Pulmonary Medical History: Reports: Hx Pneumonia Neurological Medical History: Reports: Hx Seizures Endocrine Medical History: Reports: Hx Diabetes Mellitus Type 1, Hx Diabetes Mellitus Type 2 GI Medical History: Reports: Hx Gastroesophageal Reflux Disease Psychiatric Medical History: Denies: Hx Depression - Immunizations Immunizations up to date: Yes Hx Diphtheria, Pertussis, Tetanus Vaccination: Yes Hx Pneumococcal Vaccination: 07/30/12 Review of Systems - Review of Systems -: Yes ROS unobtainable due to patient's medical condition Neurological/Psychological: Headaches Physical Exam - Vital signs Vitals: Pulse Resp BP Pulse Ox 123 H 18 157/126 H 97 05/25/17 10:17 05/25/17 10:17 05/25/17 10:17 05/25/17 10:17 Interpretation: Normal - General General appearance: Alert In distress: Moderate - HEENT Head: Normocephalic, Other - Left forehead hematoma with swelling and tenderness Eyes: Other - Right eye opacification Conjunctiva: Normal - left eye Extraocular movements intact: Yes Eyelashes: Normal Pupils: PERRL - left eye Mucous membranes: Dry Pharynx: Normal Neck: Normal - Respiratory Respiratory status: No respiratory distress Chest status: Nontender Breath sounds: Normal Chest palpation: Normal - Cardiovascular Rhythm: Regular Heart sounds: Normal auscultation Murmur: No - Abdominal Inspection: Normal Distension: No distension Bowel sounds: Normal Tenderness: Nontender Organomegaly: No organomegaly - Back Back: Normal, Nontender - Extremities General upper extremity: Normal inspection General lower extremity: Normal inspection - Neurological Neuro grossly intact: Yes - Skin Skin Temperature: Warm Skin Moisture: Dry Skin Color: Normal Course - Re-evaluation Re-evalutation: 05/25/17 11:07 Patient's brothers arrived to the emergency room and apparently had some concerns regarding patient's care, the nurse tried to ascertain exactly what the concern was, however they were unwilling to speak to nursing staff, I went in the room to discuss the care of patient with him and he basically told me he was displeased with some of the care that patient had received in this hospital in the past and that he felt as though we were doing too much, that patient is a very hard stick and very difficult to get blood from due to his history 05/25/17 11:57 Lab and imaging findings unremarkable except for mild hyperglycemia, with no signs of DKA, patient will be discharged back to the custodial with instructions for follow-up - Vital Signs Vital signs: Temp Pulse Resp BP Pulse Ox 123 H 18 157/126 H 97 05/25/17 10:17 05/25/17 10:17 05/25/17 10:17 05/25/17 10:17 - Laboratory Result Diagrams: 05/25/17 10:50 05/25/17 10:50 Laboratory results interpreted by me: 05/25/17 05/25/17 05/25/17 10:50 10:50 10:50 RDW 14.4 H Sodium 146.0 H Glucose 188 H Alkaline Phosphatase 127 H Urine Protein 100 H Ur Leukocyte Esterase SMALL H - Diagnostic Test Radiology reviewed: Image reviewed, Reports reviewed Discharge - Discharge Clinical Impression: Head injury Qualifiers: Encounter type: initial encounter Qualified Code(s): S09.90XA - Unspecified injury of head, initial encounter Condition: Stable Disposition: HOME, SELF-CARE Instructions: Head Injury Precautions ([facility]), Hematoma ([facility]) Additional Instructions: Follow up with your primary care provider in one to 2 days. Return to the emergency room immediately if symptoms worsen or any additional concerns. Referrals: TRAVIS BASS MD [Primary Care Provider] - Follow up as needed
[2017-05-25] MEDS ORDERED: KETOROLAC TROMETHAMINE 60 MG/2 ML SDV IM ONE (10:49)
[2017-05-25] MEDS ORDERED: ONDANSETRON 4 MG TAB.RAPDIS SL ONE (10:49)
[2017-05-25 11:09] LABS: ABSOLUTE EOSINOPHILS # (AUTO) 0.1 10^3/uL (0.0-0.6); ABSOLUTE LYMPHOCYTES (AUTO) 2.2 10^3/uL (0.5-4.7); ABSOLUTE NEUT (AUTO) 6.3 10^3/uL (1.7-8.2); BASOPHILS % (AUTO) 0.5 % (0-2); EOSINOPHILS % (AUTO) 0.8 % (0-6); HEMATOCRIT 42.8 % (37.9-51.0); HEMOGLOBIN 14.3 g/dL (13.5-17.0); HGB HCT DIFFERENCE 0.1; MEAN CORPUSCULAR HEMOGLOBIN 31.5 pg (27.0-33.4); MEAN CORPUSCULAR HGB CONC 33.3 g/dL (32.0-36.0); MEAN CORPUSCULAR VOLUME 95 fl (80-97); MONOCYTES % (AUTO) 10.2 % (3-13); RED BLOOD COUNT 4.53 10^6/uL (4.35-5.55); RED CELL DISTRIBUTION WIDTH 14.4 % (11.5-14.0); SEGMENTED NEUTROPHILS % (AUTO) 65.5 % (42-78); WHITE BLOOD COUNT 9.6 10^3/uL (4.0-10.5)
[2017-05-25 11:14] LABS: APPEARANCE,URINE CLOUDY; BILIRUBIN,URINE NEGATIVE (NEGATIVE); GLUCOSE, URINE NEGATIVE (NEGATIVE); KETONES,URINE NEGATIVE (NEGATIVE); LEUKOCYTE ESTERASE,URINE SMALL (NEGATIVE); NITRITE,URINE NEGATIVE (NEGATIVE); PROTEIN,URINE 100 mg/dL (NEGATIVE); URINE SPECIFIC GRAVITY 1.028; UROBILINOGEN,URINE NEGATIVE mg/dL (<2.0)
[2017-05-25 11:28] LABS: ALANINE AMINOTRANSFERASE 62 U/L (21-72); ALBUMIN 4.1 g/dL (3.5-5.0); ALKALINE PHOSPHATASE 127 U/L (38-126); ANION GAP 12 (5-19); ASPARTATE AMINO TRANSFERASE 44 U/L (17-59); BILIRUBIN,DIRECT 0.4 mg/dL (0.0-0.4); BILIRUBIN,TOTAL 0.5 mg/dL (0.2-1.3); BLOOD UREA NITROGEN 15 mg/dL (7-20); CALCIUM 9.5 mg/dL (8.4-10.2); CARBON DIOXIDE 29 mmol/L (22-30); CHLORIDE 105 mmol/L (98-107); CREATININE RESULT 1.17 mg/dL (0.52-1.25); GLUCOSE 188 mg/dL (75-110); POTASSIUM 4.5 mmol/L (3.6-5.0); TOTAL PROTEIN 7.2 g/dL (6.3-8.2)
--- NOTE | 2017-05-25 11:55 | RADIOLOGY REPORT (SQ) ---
EXAM DESCRIPTION: CT HEAD WITHOUT COMPLETED DATE/TIME: 05/25/2017 11:46 am REASON FOR STUDY: injury COMPARISON: 12/29/2014. TECHNIQUE: Axial images acquired through the brain without intravenous contrast. Images reviewed wi th bone, brain and subdural windows. Images stored on PACS. All CT scanners at this facility use dose modulation, iterative reconstruction, and/or weight based d osing when appropriate to reduce radiation dose to as low as reasonably achievable (ALARA). [facility]: Dose Right [facility]: CareDose [facility]: Dose Right [facility]: Teradose 4D [facility]: [employer] RADIATION DOSE: Up-to-date CT equipment and radiation dose reduction techniques were employed. CTDIv ol: 64.6 mGy. DLP: 1138 mGy-cm. mGy. LIMITATIONS: None. FINDINGS: VENTRICLES: Prominent. CEREBRUM: No masses. No hemorrhage. No midline shift. Areas of low density in the white matter mos t likely due to chronic micro-vascular ischemic change. No evidence for acute infarction. CEREBELLUM: No masses. No hemorrhage. No alteration of density. No evidence for acute infarction. EXTRAAXIAL SPACES: Mild age-related involutional change. No fluid collections. No masses. ORBITS AND GLOBE: No intra- or extraconal masses. Right ocular prosthesis. CALVARIUM: No fracture. PARANASAL SINUSES: No fluid or mucosal thickening. SOFT TISSUES: Soft tissue swelling. OTHER: No other significant finding. IMPRESSION: MILD CHRONIC CHANGES OF ATROPHY AND MICROVASCULAR ISCHEMIA. SOFT TISSUE SWELLING. NO A CUTE PROCESS. EVIDENCE OF ACUTE STROKE: NO. TECHNICAL DOCUMENTATION: JOB ID: [id number] Quality ID # [id number]: Final reports with documentation of one or more dose reduction techniques (e.g., Au tomated exposure control, adjustment of the mA and/or kV according to patient size, use of iterative reconstruction technique) 2010 [employer]- All Rights Reserved
[2017-05-25 12:09] VITALS: BP 105/69
== END 2017-05-25 13:32 | disposition home or self-care (01) ==
LOC: ER 10:07
DX: S00.83XA Contusion of other part of head, initial encounter (principal); W19.XXXA Unspecified fall, initial encounter; Y92.129 Unspecified place in nursing home as the place of occurrence of the external cause; Q90.9 Down syndrome, unspecified; R51 Headache; E11.65 Type 2 diabetes mellitus with hyperglycemia; I10 Essential (primary) hypertension; Z88.1 Allergy status to other antibiotic agents
CPT/HCPCS: 99284; 96372; 36415; 87086; 85025; 87088; 80053; 81001; 87186; 70450; J2060

== ENCOUNTER → 2017-10-30 | Outpatient (CLI) | payer MEDICARE, MEDICAID ==
--- NOTE | 2017-10-30 14:48 | RADIOLOGY REPORT (SQ) ---
EXAM DESCRIPTION: CT HEAD WITHOUT COMPLETED DATE/TIME: 10/30/2017 2:16 pm REASON FOR STUDY: HEADACHE (R51) R51 HEADACHE COMPARISON: 05/26/2017 TECHNIQUE: Axial images acquired through the brain without intravenous contrast. Images reviewed wi th bone, brain and subdural windows. Additional sagittal and coronal reconstructions were generated. Images stored on PACS. All CT scanners at this facility use dose modulation, iterative reconstruction, and/or weight based d osing when appropriate to reduce radiation dose to as low as reasonably achievable (ALARA). [facility]: Dose Right [facility]: CareDose [facility]: Dose Right [facility]: Teradose 4D [facility]: Smart [employer] RADIATION DOSE: CT Rad equipment meets quality standard of care and radiation dose reduction techniq ues were employed. CTDIvol: 48.5 mGy. DLP: 854 mGy-cm. mGy. LIMITATIONS: Patient motion. FINDINGS: VENTRICLES: Prominent ventricles. CEREBRUM: No masses. No hemorrhage. No midline shift. No evidence for acute infarction. Normal gra y/white matter differentiation. No areas of low density in the white matter. CEREBELLUM: No masses. No hemorrhage. No alteration of density. No evidence for acute infarction. EXTRAAXIAL SPACES: No fluid collections. No masses. ORBITS AND GLOBE: The right optic globe is opacified. CALVARIUM: No fracture. PARANASAL SINUSES: No fluid or mucosal thickening. SOFT TISSUES: No mass or hematoma. OTHER: No other significant finding. IMPRESSION: Stable ventricular enlargement. Hydrocephalus versus atrophic changes. EVIDENCE OF ACUTE STROKE: NO. COMMENT: Quality ID # [id number]: Final reports with documentation of one or more dose reduction techniques (e.g., Automated exposure control, adjustment of the mA and/or kV according to patient size, use of iterative reconstruction technique) TECHNICAL DOCUMENTATION: JOB ID: [id number] [employer]- All Rights Reserved Reading location - IP/workstation name: [email or web address]
== END ==
LOC: RAD 13:41
PROVIDERS: ATTEND Internal Medicine
DX: R51 Headache (principal)
CPT/HCPCS: 70450; 80048; 83036; 85025